=== PATIENT | male | born 1950 | race Caucasian/White ===

== ENCOUNTER 2024-03-02 18:35 | Inpatient (IN) | payer OTHER ==
[~2024-03-02] VITALS: Ht 167.6 cm; Wt 77.1 kg
[~2024-03-02 18:35] MED LIST: Enoxaparin 40 MG/0.4 ML SYR SC SCH
[2024-03-02 19:41] LABS: BASOPHILS ABSOLUTE AUTO 0.02 K/mm3 (0.00-0.23); BASOPHILS PERCENT AUTO 0 % (0-2); EOSINOPHILS ABSOLUTE AUTO 0.01 K/mm3 (0.00-0.68); EOSINOPHILS PERCENT AUTO 0 % (0-6); Hematocrit 24.8 % (37.0-53.0); Hemoglobin 8.6 g/dL (13.5-17.5); IMMATURE GRAN ABSOLUTE AUTO 0.12 K/mm3 (0.00-0.10); IMMATURE GRAN PERCENT AUTO 1 % (0-1); LYMPHOCYTES ABSOLUTE AUTO 2.07 K/mm3 (0.84-5.20); LYMPHOCYTES PERCENT AUTO 13 % (21-46); MONOCYTES PERCENT AUTO 4 % (4-13); Mean Corpuscular HGB 35.2 pg (26.0-34.0); Mean Corpuscular HGB Conc 34.7 g/dL (31.5-36.5); Mean Corpuscular Volume 102 fL (80-100); Mean Platelet Volume 9.9 fL (9.1-12.4); NEUTROPHILS ABSOLUTE AUTO 12.94 K/mm3 (1.96-9.15); NEUTROPHILS PERCENT AUTO 82 % (41-73); NRBC ABSOLUTE 0.17 K/mm3 (0.00-0.02); NRBC Auto 1.1 /100 WBC (0.0-0.2); Platelet Count 365 K/mm3 (150-400); RDW Coefficient Variation 14.4 % (11.7-14.2); RDW Standard Deviation 52.3 fL (35.1-46.3); Red Blood Cell Count 2.44 M/mm3 (4.30-5.90); White Blood Cell Count 15.76 K/mm3 (4.00-11.30)
[2024-03-02 20:16] LABS: Alanine Aminotransfer (ALT/SGP 20 U/L (12-78); Albumin/Globulin Ratio 0.5 (0.8-1.8); Alk Phos 163 U/L (50-136); Anion Gap 29 mmol/L (3-11); Aspartate Aminotrans (AST/SGOT 76 U/L (12-37); Bilirubin, Total 2.3 mg/dL (0.1-1.0); Blood Urea Nitrogen 29 mg/dL (8-24); Bun/Creatinine Ratio 19.7 (12.0-20.0); CO2, Blood 18 mmol/L (21-32); Calcium, Blood 8.6 mg/dL (8.5-10.1); Chloride, Blood 89 mmol/L (98-108); Creatinine, Blood 1.47 mg/dL (0.60-1.20); Globulin, Blood 4.3 g/dL (2.2-4.0); Glomerular Filtration Rate 50 (60-); Glucose, Blood 166 mg/dL (70-99); Potassium, Blood 2.6 mmol/L (3.5-5.5); Sodium, Blood 133 mmol/L (136-145); Total Protein, Blood 6.3 g/dL (6.4-8.2)
[2024-03-02 20:35] LABS: Ethanol (Alcohol), Blood, Med <3 mg/dL; Magnesium, Blood 1.8 mg/dL (1.6-2.4)
[2024-03-02] MEDS ORDERED: LACT10SY (21:42)
[2024-03-02] MEDS ORDERED: ELIQUIS5 M2 PO (21:43)
[2024-03-02] MEDS ORDERED: OMEP20ER PO (21:43)
[2024-03-02] MEDS ORDERED: Potassium Chloride 20 MEQ TabCR PO ONE (22:00)
[2024-03-02] MEDS ORDERED: Potassium Chloride 40 MEQ in NS 250 ML IV ONE (22:00)
[2024-03-02 22:39] LABS: Base Excess Venous 6.7 mmol/L; Bicarbonate Venous 29.8 mmol/L (24.0-30.0); PCO2 Venous 36 mmHg (38-42); pH Blood Venous 7.52 (7.34-7.37)
[2024-03-02] MEDS ORDERED: Ondansetron HCl 2 MG / ML 2ML Vial IV PRN (23:50)
[2024-03-03] VITALS (11 sets, daily range): BP systolic 92–109; BP diastolic 54–68
[2024-03-03] MEDS ORDERED: Thiamine HCl 500 MG in NS 100 ML IV SCH (00:22)
[2024-03-03] MEDS ORDERED: Sodium Bicarb 8.4% 1 MEQ/ML 50 ML Vial IV ONE (00:25)
[2024-03-03] MEDS ORDERED: Sodium Bicarb 8.4% Inj 100 MEQ in Sodium Chloride 0.45% 1,000 ML IV SCH (00:25)
[2024-03-03] MEDS ORDERED: Albumin (Human) 25gm/100ml 100 ML IV ONE (00:30)
[2024-03-03 00:44] LABS: BASOPHILS ABSOLUTE AUTO 0.02 K/mm3 (0.00-0.23); BASOPHILS PERCENT AUTO 0 % (0-2); EOSINOPHILS ABSOLUTE AUTO 0.01 K/mm3 (0.00-0.68); EOSINOPHILS PERCENT AUTO 0 % (0-6); Hematocrit 20.9 % (37.0-53.0); Hemoglobin 7.5 g/dL (13.5-17.5); IMMATURE GRAN ABSOLUTE AUTO 0.08 K/mm3 (0.00-0.10); IMMATURE GRAN PERCENT AUTO 1 % (0-1); LYMPHOCYTES ABSOLUTE AUTO 2.56 K/mm3 (0.84-5.20); LYMPHOCYTES PERCENT AUTO 18 % (21-46); MONOCYTES ABSOLUTE AUTO 0.66 K/mm3 (0.16-1.47); MONOCYTES PERCENT AUTO 5 % (4-13); Mean Corpuscular HGB 35.7 pg (26.0-34.0); Mean Corpuscular HGB Conc 35.9 g/dL (31.5-36.5); Mean Corpuscular Volume 100 fL (80-100); Mean Platelet Volume 9.9 fL (9.1-12.4); NEUTROPHILS ABSOLUTE AUTO 11.24 K/mm3 (1.96-9.15); NEUTROPHILS PERCENT AUTO 77 % (41-73); NRBC ABSOLUTE 0.11 K/mm3 (0.00-0.02); NRBC Auto 0.8 /100 WBC (0.0-0.2); Platelet Count 295 K/mm3 (150-400); RDW Coefficient Variation 14.3 % (11.7-14.2); RDW Standard Deviation 51.4 fL (35.1-46.3); White Blood Cell Count 14.57 K/mm3 (4.00-11.30)
[2024-03-03] MEDS ORDERED: Enoxaparin 40 MG/0.4 ML SYR SC SCH (01:00)
[2024-03-03 01:06] LABS: Albumin, Blood 1.8 g/dL (3.4-5.0); Albumin/Globulin Ratio 0.5 (0.8-1.8); Bilirubin, Total 2.1 mg/dL (0.1-1.0); Bun/Creatinine Ratio 18.7 (12.0-20.0); Calcium, Blood 8.2 mg/dL (8.5-10.1); Creatinine, Blood 1.5 mg/dL (0.60-1.20); Free Thyroxine 1.76 ng/dL (0.70-1.60); Globulin, Blood 3.8 g/dL (2.2-4.0); Potassium, Blood 2.9 mmol/L (3.5-5.5); Thyroid Stimulating Hormone 2.02 uIU/mL (0.360-4.800); Total Protein, Blood 5.6 g/dL (6.4-8.2)
[2024-03-03] MEDS ORDERED: HYDCOR2.5C PR (01:07)
[2024-03-03] MEDS ORDERED: HYDHCL25 (01:08)
[2024-03-03] MEDS ORDERED: LOPE2C PO (01:08)
[2024-03-03 01:10] LABS: International Normalized Ratio 1.62; Prothrombin Time Results 16.7 Sec (9.7-11.5)
[2024-03-03] MEDS ORDERED: HYDCHL25 (01:10)
[2024-03-03] MEDS ORDERED: DICL250 PO (01:10)
[2024-03-03] MEDS ORDERED: Metoclopramide HCl 5MG / ML 2ML Vial IV PRN (01:35)
[2024-03-03] MEDS ORDERED: Pantoprazole Sodium 40 MG Injection IV ONE (01:35)
[2024-03-03] MEDS ORDERED: Pantoprazole Sodium 40 MG in NS 50 ML IV SCH (01:35)
--- NOTE | 2024-03-03 01:58 | NUR ---
ARRIVAL TO PCU: REPORT FROM VENUS RN, THIS RN ASSUMED CARE OF PT. PT ARRIVED TO PCU 10 AT APPROX 0050 VIA GURNEY. PT SLID TO BED BY STAFF. NEURO: PT ALERT, CONVERSANT W/ STAFF. ORIENTED TO SELF ONLY. INCORRECT LOCATION, YEAR, AND SITUATION STATED. UNABLE TO RECALL EX-'S NAME. PT STATES "I HAVE BEEN CONFUSED AT HOME FOR THE LAST 3 OR 4 DAYS." PERRLA. DENIES NUMBNESS/TINGLING. ABLE TO MOVE ALL EXTREMITIES. CARDIAC: SINUS RHYTHM ON TELE, RATE 80'S. SBP 90-100'S, MAP >65. PT DENIES CHEST PAIN/PRESSURE. RADIAL PULSES STRONG ON PALPATION, PEDAL PULSES FAINT. 3+ PITTING EDEMA TO BLE. RESPIRATORY: PT ARRIVED TO PCU ON RA W/ SPO2 >90%. WITHIN 1HR OF ARRIVAL, PT BEGAN DESATTING INTO 80'S ON RA W/O VISIBLE SOB. TITRATED PT TO 3L O2 VIA NC TO MAINTAIN SPO2 >90%. RESPIRATIONS EVEN & UNLABORED. RR 18-24. OCCASIONAL POLICE PATROL LIEUTENANT COUGH NOTED. GI: PT W/ SIGNIFICANT AMOUNT OF BELCHING ON ARRIVAL. PT REPORTS MILD NAUSEA, ZOFRAN PER EMAR. PT BEGAN VOMITING FOLLOWING ZOFRAN ADMINISTRATION; VOMIT NOTED TO BE DARK BROWN/BLACK IN COLOR. PT ON ELIQUIS AT BASELINE. CALL TO MD WOODARD; ORDERS RECEIVED FOR REGLAN, PROTONIX PUSH, PROTONIX GTT, AND HOLD LOVENOX. ALSO NOTIFIED OF DROP IN HGB. NO ADDITIONAL VOMITING FOLLOWING REGLAN ADMINISTRATION. PROTONIX PUSH ADMINISTERED & GTT INFUSING PER EMAR. BOWEL SOUNDS HYPOACTIVE X4, ABD NONTENDER. PT REPORTS RECENT BM 03/02 AM. : PT UNABLE TO VOID THUS FAR TO COLLECT UA. CONDOM CATH PLACED. PT STATES "I DON'T HAVE TO PEE." BLADDER SCAN COMPLETED, VOLUME 220ML. SKIN: FRAGILE, POOR TURGOR. PALE IN COLOR. NO PRESSURE INJURIES PRESENT ON ADMISSION. SKIN IS OVERALL INTACT. EDEMA TO BLE. PT ORIENTED TO ROOM/UNIT/CALL LIGHT. DRAWER IN HAND AT BEDSIDE AT THIS TIME TO PLACE POWERGLIDE. FIRE SAFETY/IGNITION RISK ASSESSED; PT REPORTS BEING NON-SMOKER, NO IGNITION SOURCES PRESENT ON ADMISSION. BED ALARM IN PLACE FOR PT SAFETY, CALL LIGHT IN REACH.
--- NOTE | 2024-03-03 04:46 | NUR ---
END OF SHIFT NOTE: NO ACUTE EVENTS FOLLOWING PREVIOUS NOTE. PT REMAINS DISORIENTED YET REDIRECTABLE. VSS. SEE PREVIOUS NOTE FOR FURTHER SHIFT DETAILS.
[2024-03-03] MEDS ORDERED: LORazepam 2 MG/ML 1ML Injection IV PRN (05:00)
[2024-03-03] MEDS ORDERED: ChlordiazePOXIDE 25 MG Cap PO PRN (05:05)
[2024-03-03] MEDS ORDERED: CefTRIAXone Sodium 1,000 MG in NS 100 ML IV SCH (05:08)
[2024-03-03 06:48] LABS: Hematocrit 16.8 % (37.0-53.0)
[2024-03-03] MEDS ORDERED: Octreotide Acetate 500 MCG in NS 250 ML IV SCH (07:10)
[2024-03-03 08:40] LABS: Bun/Creatinine Ratio 18.5 (12.0-20.0); Calcium, Blood 7.7 mg/dL (8.5-10.1); Creatinine, Blood 1.68 mg/dL (0.60-1.20); Potassium, Blood 3.4 mmol/L (3.5-5.5)
[2024-03-03] MEDS ORDERED: Potassium Chl 20MEQ/Water100ML 100 ML IV STA (08:48)
[2024-03-03] MEDS ORDERED: Lactulose 20 GM/30 ML UDC PO SCH (09:00)
[2024-03-03] MEDS ORDERED: NS 500 ML IV ONE (09:19)
[2024-03-03] MEDS ORDERED: NS 500 ML IV SCH (09:20)
--- NOTE | 2024-03-03 10:22 | NUR ---
AM NOTE PT ALERT WITH SOME CONFUSION. HE IS ABLE TO STATE NAME AND DATE OF BUT UNABLE TO STATE PRESIDENT, LOCATION, OR SITUATION. HE DENIES ANY CHEST PAIN/PRESSURE, PAIN, NUMB/TINGLING, PALPITATIONS. ON TELE IN SINUS RHYTHM 70'S-80'S. BLODD PRESSURES HAVE BEEEN SOFT. LUNGS DIMINISHED IN THE BASES. HE DENIES ANY SOB. BILATERAL 2+ pitting edema in feet, 3+ in ankles to knees, 2+ in knees-axillary. Code satus updated to limited: medications, intubation, defibrillation. Blood transfusion started due to Hgb of 6.0, consent obtained by MD at bedside. Will continue to monitor.
--- NOTE | 2024-03-03 12:51 | NUR ---
Transfer Summary Pt recieved one unit of packed RBC's. Blood pressure improved after one unit. Transportation arrived before second unit was received. notified of no urine output, no new orders. Pt being tranferred to [facility] via ambulance. Report given to reciveing nurse. Pt left via gurney at 1240.
--- NOTE | 2024-03-03 12:56 | NUR ---
I have reviewed Leia's documentation and am in agreement.
[2024-03-05] MEDS ORDERED: Thiamine HCl 250 MG in NS 100 ML IV SCH (09:00)
== END 2024-03-03 12:39 | disposition short-term general hospital (02) | DRG 92 ==
LOC: ER 18:35 → PCU 23:50
PROVIDERS: Emergency Medicine; Family Medicine; Student in an Organized Health Care Education/Training Program; ADMIT Internal Medicine
PROC: 30233N1 Transfusion of Nonautologous Red Blood Cells into Peripheral Vein, Percutaneous Approach (ICD-10-PCS; principal; 2024-03-02)
DX: G92.8 Other toxic encephalopathy (principal); D68.9 Coagulation defect, unspecified; K92.0 Hematemesis; N17.9 Acute kidney failure, unspecified; E87.20 Acidosis, unspecified; E87.1 Hypo-osmolality and hyponatremia; E87.3 Alkalosis; K70.30 Alcoholic cirrhosis of liver without ascites; I48.91 Unspecified atrial fibrillation; E87.6 Hypokalemia; N18.30 Chronic kidney disease, stage 3 unspecified; D72.829 Elevated white blood cell count, unspecified; R94.5 Abnormal results of liver function studies; E88.09 Other disorders of plasma-protein metabolism, not elsewhere classified; F10.20 Alcohol dependence, uncomplicated; D63.1 Anemia in chronic kidney disease; E86.0 Dehydration; Z88.0 Allergy status to penicillin; Z86.718 Personal history of other venous thrombosis and embolism; Z86.711 Personal history of pulmonary embolism; Z79.01 Long term (current) use of anticoagulants; Z79.899 Other long term (current) drug therapy; Z88.8 Allergy status to other drugs, medicaments and biological substances; Z87.891 Personal history of nicotine dependence
CPT/HCPCS: 36415; 36430; 70450; 76770; 80048; 80053; 82140; 82803; 83605; 83735; 83880; 83930; 84439; 84443; 85014; 85018; 85025; 85610; 86850; 86900; 86901; 86923; 93005; 93010; 96365; 96366; 99285-25; A9270; C9113; J0696; J2354; J2405; J2765; J3411; J3480; J7040; J7050; P9016; P9047